=== PATIENT | male | born 1970 | race African-American/Black ===

== ENCOUNTER 2016-09-16 16:36 | Emergency (ER) | payer SELFPAY ==
[~2016-09-16] VITALS: Ht 190.5 cm; Wt 82.0 kg
[2016-09-16] MEDS ORDERED: DIPHENHYDRAMINE 50MG/ML VIAL IV ONE (22:00)
[2016-09-16] MEDS ORDERED: METHYLPREDNISOLONE SOD SUCC 125 MG/2 ML VIAL IV ONE (22:00)
[2016-09-17 00:23] VITALS: BP 158/11
== END 2016-09-17 00:23 | disposition home or self-care (01) ==
LOC: ER 16:36
DX: L30.9 Dermatitis, unspecified (principal); Z88.0 Allergy status to penicillin
CPT/HCPCS: 96374; 96375; 99284; J1200; J2930; Z7610

== ENCOUNTER 2019-03-07 19:14 | Inpatient (IN) | payer SELFPAY ==
[~2019-03-07] VITALS: Ht 182.9 cm; Wt 83.5 kg
[2019-03-07] MEDS ORDERED: DIPHENHYDRAMINE 50MG/ML VIAL IV ONE (19:45)
[2019-03-07] MEDS ORDERED: FAMOTIDINE 20MG TABLET PO ONE (19:45)
[2019-03-07] MEDS ORDERED: METHYLPREDNISOLONE SOD SUCC 125 MG/2 ML VIAL IV ONE (19:45)
[2019-03-07] MEDS ORDERED: CLONIDINE 0.2MG TABLET PO ONE (22:00)
[2019-03-07] MEDS ORDERED: ASPIRIN 325MG TABLET PO ONE (22:15)
[2019-03-07] MEDS ORDERED: LABETALOL 5MG/ML SYR 20 MG/4 ML SYRINGE IV ONE (22:30)
[2019-03-07 22:52] LABS: HEMATOCRIT. 41.5 % (42.0-52.0); HEMOGLOBIN. 13.9 g/dL (14.0-18.0); MEAN CORPUSCULAR VOLUME 86.9 fL (80.0-94.0); MEAN PLATELET VOLUME 7.6 fl (7.4-10.4); PLATELET 288 x1000/uL (130-400); RED BLOOD CELL COUNT 4.78 mill/uL (4.7-6.1); RED CELL DISTRIBUTION WIDTH 14.6 % (11.6-14.6)
[2019-03-07 22:59] LABS: CHLORIDE 112 mEq/L (98-107)
[2019-03-08 03:17] LABS: ATYPICAL LYMPHOCYTES 1
[2019-03-08 03:18] LABS: PLATELET ESTIMATE NORMAL
[2019-03-08 10:14] LABS: HEMATOCRIT. 43.4 % (42.0-52.0); HEMOGLOBIN. 14.1 g/dL (14.0-18.0); MEAN CORPUSCULAR HEMOGLOBIN 28.5 pg (28.0-32.0); MEAN CORPUSCULAR VOLUME 87.6 fL (80.0-94.0); MEAN PLATELET VOLUME 7.8 fl (7.4-10.4); PLATELET 282 x1000/uL (130-400); RED BLOOD CELL COUNT 4.95 mill/uL (4.7-6.1); RED CELL DISTRIBUTION WIDTH 15.1 % (11.6-14.6)
[2019-03-08 10:17] LABS: CHLORIDE 112 mEq/L (98-107)
[2019-03-08] MEDS ORDERED: ACETAMINOPHEN 325MG TABLET PO PRN (10:45)
[2019-03-08] MEDS ORDERED: ONDANSETRON HCL 4MG/2ML INJ IV PRN (10:45)
[2019-03-08 10:57] LABS: PLATELET ESTIMATE NORMAL
[2019-03-08] MEDS ORDERED: LEVOFLOXACIN 500MG PREMIX 100 ML IV SCH (13:00)
[2019-03-08] MEDS: DIPHENHYDRAMINE 50MG/ML VIAL IV SCH ×2 (13:14→21:21)
[2019-03-08] MEDS: METHYLPREDNISOLONE SOD SUCC 40 MG/ML VIAL IV SCH ×2 (13:14→21:21)
[2019-03-08 16:00] VITALS: BP 137/82
[2019-03-08 20:00] VITALS: BP 132/66
[2019-03-08] MEDS: FAMOTIDINE 20MG/2ML VIAL IV SCH (21:21)
[2019-03-08 23:02] LABS: CANNABINOID URINE SCREEN NEGATIVE (NEGATIVE); PHENCYCLIDINE URINE SCREEN NEGATIVE (NEGATIVE)
[2019-03-08 23:03] LABS: *AMPHETAMINES SCREEN URINE NEGATIVE (NEGATIVE); *BARBITURATES SCREEN URINE NEGATIVE (NEGATIVE); *BENZODIAZEPINES SCREEN URINE NEGATIVE (NEGATIVE); *COCAINE SCREEN URINE NEGATIVE (NEGATIVE); METHADONE URINE SCREEN NEGATIVE (NEGATIVE); OPIATES URINE SCREEN PRESUMTIVE POSITIVE (NEGATIVE)
[2019-03-09] VITALS: BP 128/59
[2019-03-09 04:00] VITALS: BP 124/72
[2019-03-09] MEDS: METHYLPREDNISOLONE SOD SUCC 40 MG/ML VIAL IV SCH ×3 (05:43→21:36)
[2019-03-09 06:56] LABS: HEMATOCRIT. 38.8 % (42.0-52.0); HEMOGLOBIN. 12.8 g/dL (14.0-18.0); MEAN CORPUSCULAR HEMOGLOBIN 28.6 pg (28.0-32.0); MEAN CORPUSCULAR VOLUME 86.8 fL (80.0-94.0); PLATELET 280 x1000/uL (130-400); RED BLOOD CELL COUNT 4.47 mill/uL (4.7-6.1); RED CELL DISTRIBUTION WIDTH 14.6 % (11.6-14.6)
[2019-03-09 07:39] LABS: CHLORIDE 110 mEq/L (98-107)
[2019-03-09 08:00] VITALS: BP 125/72
[2019-03-09] MEDS: DIPHENHYDRAMINE 50MG/ML VIAL IV SCH ×2 (08:54→21:37)
[2019-03-09] MEDS: FAMOTIDINE 20MG/2ML VIAL IV SCH ×2 (08:54→21:36)
[2019-03-09 12:00] VITALS: BP 119/52
[2019-03-09] MEDS: SODIUM CHLORIDE 0.45% 1,000 ML IV SCH ×2 (13:27→21:37)
[2019-03-09 15:39] LABS: CLARITY URINE CLEAR (CLEAR); COLOR URINE YELLOW (YELLOW); KETONES URINE NEGATIVE (NEGATIVE); LEUKOCYTE ESTERASE URINE NEGATIVE (NEGATIVE); NITRITE URINE NEGATIVE (NEGATIVE); OCCULT BLOOD URINE NEGATIVE (NEGATIVE); PROTEIN URINE NEGATIVE (NEGATIVE); SPECIFIC GRAVITY URINE 1.021 (1.005-1.030); UROBILINOGEN URINE 0.2 E.U./dL (0.2-1.0)
[2019-03-09 16:00] VITALS: BP 146/90
[2019-03-09 16:58] LABS: PLATELET ESTIMATE NORMAL
[2019-03-09] MEDS ORDERED: LEVOFLOXACIN 500MG PREMIX 100 ML IV SCH (17:00)
[2019-03-09 20:00] VITALS: BP 135/79
[2019-03-10] VITALS: BP 129/65
[2019-03-10 04:00] VITALS: BP 145/97
[2019-03-10] MEDS: METHYLPREDNISOLONE SOD SUCC 40 MG/ML VIAL IV SCH (06:11)
[2019-03-10 07:28] LABS: HEMATOCRIT. 38.7 % (42.0-52.0); HEMOGLOBIN. 12.7 g/dL (14.0-18.0); MEAN CORPUSCULAR HEMOGLOBIN 28.6 pg (28.0-32.0); MEAN CORPUSCULAR VOLUME 86.9 fL (80.0-94.0); MEAN PLATELET VOLUME 8.4 fl (7.4-10.4); PLATELET 263 x1000/uL (130-400); RED BLOOD CELL COUNT 4.45 mill/uL (4.7-6.1); RED CELL DISTRIBUTION WIDTH 15.2 % (11.6-14.6)
[2019-03-10 08:00] VITALS: BP 141/75
[2019-03-10 08:48] LABS: CHLORIDE 107 mEq/L (98-107)
[2019-03-10] MEDS: SODIUM CHLORIDE 0.45% 1,000 ML IV SCH (09:10)
[2019-03-10] MEDS: FAMOTIDINE 20MG/2ML VIAL IV SCH (09:12)
[2019-03-10] MEDS: DIPHENHYDRAMINE 50MG/ML VIAL IV SCH (09:12)
[2019-03-10 12:00] VITALS: BP 132/78
[2019-03-10 14:06] LABS: PLATELET ESTIMATE NORMAL
== END 2019-03-10 14:20 | disposition home or self-care (01) | DRG 720 ==
LOC: ER 19:20 → 7WST 22:37 → ENRESERV 03-08 13:39 → 7WST 03-08 16:30
PROVIDERS: ADMIT Internal Medicine; ATTEND Internal Medicine
DX: A41.9 Sepsis, unspecified organism (principal); N17.0 Acute kidney failure with tubular necrosis; E87.8 Other disorders of electrolyte and fluid balance, not elsewhere classified; E44.1 Mild protein-calorie malnutrition; I16.1 Hypertensive emergency; T78.3XXA Angioneurotic edema, initial encounter; Y92.89 Other specified places as the place of occurrence of the external cause; Z88.0 Allergy status to penicillin; Z68.25 Body mass index [BMI] 25.0-25.9, adult
CPT/HCPCS: 36415; 71045; 80048; 80053; 80305; 81003; 83036; 83880; 84145; 84484; 85025; 93005; 93970; 99291; J1200; J1956; J2920; J2930; J3490

== ENCOUNTER 2020-01-21 13:46 | Emergency (ER) | payer SELFPAY ==
[~2020-01-21] VITALS: Ht 182.9 cm; Wt 81.0 kg
[2020-01-21] MEDS ORDERED: ACETAMINOPHEN 500MG TABLET PO ONE (15:15)
[2020-01-21 15:38] VITALS: BP 121/82
== END 2020-01-21 15:44 | disposition home or self-care (01) ==
LOC: ER 13:46
DX: U07.1 COVID-19 (principal); R05 Cough; R51.9 Headache, unspecified; Z88.0 Allergy status to penicillin
CPT/HCPCS: 99282

== ENCOUNTER 2020-02-10 15:25 | Inpatient (IN) | payer SELFPAY ==
[~2020-02-10] VITALS: Ht 182.9 cm; Wt 86.3 kg
[2020-02-10] MEDS ORDERED: IBUPROFEN 600MG TABLET PO ONE (16:30)
[2020-02-10] MEDS ORDERED: ASPIRIN 81MG TABLET PO ONE (18:45)
[2020-02-10 20:09] LABS: BASOPHILS % 0.8 % (0.0-2.0); EOSINOPHILS % 2.1 % (0.0-5.0); HEMATOCRIT. 41.9 % (42.0-52.0); HEMOGLOBIN. 13.7 g/dL (14.0-18.0); LYMPHOCYTES % 22.3 % (20.0-50.0); MEAN CORPUSCULAR HEMOGLOBIN 28.8 pg (28.0-32.0); MEAN CORPUSCULAR VOLUME 87.9 fL (80.0-94.0); MEAN PLATELET VOLUME 8.7 fl (7.4-10.4); MONOCYTES % 14.7 % (2.0-8.0); NEUTROPHILS % 60.1 % (40.0-76.0); PLATELET 169 x1000/uL (130-400); RED BLOOD CELL COUNT 4.77 mill/uL (4.7-6.1); RED CELL DISTRIBUTION WIDTH 15.2 % (11.6-14.6)
[2020-02-10 20:12] LABS: CHLORIDE 110 mEq/L (98-107)
[2020-02-10] MEDS ORDERED: CLONIDINE 0.1MG TABLET PO PRN (21:45)
[2020-02-10] MEDS ORDERED: IPRATROPIUM/ALBUTEROL 0.5-3(2.5)MG/3ML NEB NEB PRN (21:45)
[2020-02-10] MEDS ORDERED: MAGNESIUM/ALUMINUM HYDROXIDE/SIMETHICONE 30ML UDC PO PRN (21:45)
[2020-02-10] MEDS ORDERED: DOCUSATE SODIUM 100MG CAPSULE PO PRN (21:45)
[2020-02-10] MEDS ORDERED: ACETAMINOPHEN 325MG TABLET PO PRN (21:45)
[2020-02-10] MEDS ORDERED: ONDANSETRON HCL 4MG/2ML INJ IV PRN (21:45)
[2020-02-10] MEDS ORDERED: GUAIFENESIN 200MG/10ML SUGAR FREE UDC PO PRN (21:45)
[2020-02-10] MEDS: ENOXAPARIN 40MG/0.4ML SYR SUBCUT SCH (23:05)
[2020-02-11 01:56] LABS: CREATINE KINASE MB FRACTION 1.5 ng/mL (0.5-3.6)
[2020-02-11 10:39] LABS: BASOPHILS % 1.1 % (0.0-2.0); EOSINOPHILS % 2.8 % (0.0-5.0); HEMATOCRIT. 43.2 % (42.0-52.0); HEMOGLOBIN. 14.4 g/dL (14.0-18.0); MEAN CORPUSCULAR HEMOGLOBIN 29.1 pg (28.0-32.0); MEAN CORPUSCULAR VOLUME 87.4 fL (80.0-94.0); MEAN PLATELET VOLUME 8.2 fl (7.4-10.4); MONOCYTES % 11.4 % (2.0-8.0); NEUTROPHILS % 65.7 % (40.0-76.0); PLATELET 170 x1000/uL (130-400); RED BLOOD CELL COUNT 4.94 mill/uL (4.7-6.1); RED CELL DISTRIBUTION WIDTH 15.2 % (11.6-14.6)
[2020-02-11 10:56] LABS: CREATINE KINASE 87 IU/L (39-308)
[2020-02-11 10:57] LABS: CREATINE KINASE MB FRACTION 1.8 ng/mL (0.5-3.6)
[2020-02-11] MEDS: ASPIRIN 81MG EC TABLET PO SCH (11:18)
[2020-02-11] MEDS ORDERED: LOPERAMIDE HCL 2MG CAPSULE PO PRN ×2 (15:30)
[2020-02-11 16:10] LABS: T4 FREE 1.13 ng/dL (0.76-1.46)
[2020-02-11 17:46] VITALS: BP_SYST 142; BP_SYST 156; BP_DIAS 112; BP_DIAS 80
[2020-02-11 18:07] VITALS: BP 164/128
[2020-02-11 18:19] VITALS: BP 141/105
[2020-02-11 20:00] VITALS: BP 137/93
[2020-02-11] MEDS ORDERED: ATORVASTATIN CALCIUM 40MG TABLET PO SCH (21:00)
[2020-02-11] MEDS: AMLODIPINE 5MG TABLET PO SCH (21:14)
[2020-02-11] MEDS: ENOXAPARIN 40MG/0.4ML SYR SUBCUT SCH (21:14)
[2020-02-11 22:00] VITALS: BP 137/91
[2020-02-12] VITALS (10 sets, daily range): BP systolic 130–156; BP diastolic 75–108
[2020-02-12 07:30] LABS: CHLORIDE 109 mEq/L (98-107)
[2020-02-12 07:43] LABS: EOSINOPHILS % 4.9 % (0.0-5.0); HEMATOCRIT. 36.1 % (42.0-52.0); HEMOGLOBIN. 12.3 g/dL (14.0-18.0); LYMPHOCYTES % 20.8 % (20.0-50.0); MEAN CORPUSCULAR HEMOGLOBIN 29.3 pg (28.0-32.0); MEAN CORPUSCULAR VOLUME 86.1 fL (80.0-94.0); MEAN PLATELET VOLUME 8.4 fl (7.4-10.4); MONOCYTES % 12.6 % (2.0-8.0); NEUTROPHILS % 60.7 % (40.0-76.0); PLATELET 149 x1000/uL (130-400); RED CELL DISTRIBUTION WIDTH 14.6 % (11.6-14.6)
[2020-02-12] MEDS: ASPIRIN 81MG EC TABLET PO SCH (09:30)
[2020-02-12] MEDS: AMLODIPINE 5MG TABLET PO SCH (09:30)
[2020-02-12] MEDS ORDERED: LIP40 PO ×2 (12:31→16:02)
[2020-02-12] MEDS ORDERED: AMLO5TAB88 PO ×2 (12:31→16:02)
[2020-02-12] MEDS ORDERED: ASPI-1158 PO ×2 (12:31→16:02)
== END 2020-02-12 19:05 | disposition home or self-care (01) | DRG 133 ==
LOC: ER 15:25 → MICUSO 21:07 → EDBEDREQ 21:10 → EDBEDREQTM 21:10 → 3WST 02-11 14:30
PROVIDERS: ADMIT Internal Medicine; ATTEND Internal Medicine
DX: J96.00 Acute respiratory failure, unspecified whether with hypoxia or hypercapnia (principal); E78.5 Hyperlipidemia, unspecified; I11.9 Hypertensive heart disease without heart failure; Z20.828 Contact with and (suspected) exposure to other viral communicable diseases; Z88.0 Allergy status to penicillin
CPT/HCPCS: 36415; 71045; 78582; 80048; 80053; 80061; 82550; 82553; 83036; 83735; 83880; 84439; 84443; 84484; 85025; 85379; 87389; 93005; 93306; 93970; 99285; A9558; J1650; U0003